=== PATIENT | female | born 1995 | race Caucasian/White ===

== ENCOUNTER 2023-01-30 12:37 | Outpatient (CLI) | payer BC, OTHER | END 2023-01-30 12:38 | disposition home or self-care (01) | LOC: ULT 12:37 | PROVIDERS: ATTEND Physician Assistant | DX: I82.412 Acute embolism and thrombosis of left femoral vein (principal) ==

== ENCOUNTER 2023-03-22 13:23 | Outpatient (CLI) | payer BC, OTHER | END 2023-03-22 13:24 | disposition home or self-care (01) | LOC: BICRAD 13:23 | PROVIDERS: ATTEND Physician Assistant | DX: R05.9 Cough, unspecified (principal) | CPT/HCPCS: 71046 ==

== ENCOUNTER 2023-09-02 11:57 | Day surgery (SDC) | payer BC, OTHER ==
[2023-08-30 12:07] VITALS: BMI 38.5
[2023-09-02] MEDS ORDERED: Magnevist 469MG/ML 20 ML VIAL ONE (13:17)
[2023-09-02] MEDS ORDERED: Famotidine/PF 20 mg/2ml Vial ONE (13:33)
[2023-09-02] MEDS ORDERED: Ondansetron PF 4 MG/2 ML Vial ONE (13:33)
== END 2023-09-02 15:43 | disposition home or self-care (01) ==
LOC: MRI 11:57
PROVIDERS: ATTEND Psychiatry & Neurology Neurology
DX: G50.0 Trigeminal neuralgia (principal); I51.9 Heart disease, unspecified; Q90.9 Down syndrome, unspecified; E03.9 Hypothyroidism, unspecified; F42.9 Obsessive-compulsive disorder, unspecified; Z79.01 Long term (current) use of anticoagulants; Z79.899 Other long term (current) drug therapy; Z79.890 Hormone replacement therapy
CPT/HCPCS: 70553; A9579; J2405; S0028